=== PATIENT | female | born 1950 | race Asian ===

== ENCOUNTER 2019-07-30 15:47 | Emergency (ER) | payer SELFPAY ==
[2019-07-30] VITALS (7 sets, daily range): BP systolic 152–209; BP diastolic 67–84; PULSE 81–104; RESP 14–20; TEMP 37.1; O2SAT 97–100; BMI 21.9
--- NOTE | 2019-07-30 16:07 | DI.RAD.S_ITS ---
PROCEDURE: XR CHEST 1V INDICATIONS: syncope TECHNIQUE: One view of the chest was acquired. COMPARISON: None. FINDINGS: Surgical changes and devices: None. Lungs and pleura: Lungs are clear. No pleural effusions or pneumothorax. Mediastinum: Mediastinal contours appear normal. Heart size is normal. Bones and chest wall: No suspicious bony lesions. Overlying soft tissues appear unremarkable. IMPRESSION: Normal for age, source of current or syncopal symptoms is not seen. Dictated by: Jeff Casiano M.D. on 07/30/2019 at 16:34 Approved by: Jeff Casiano M.D. on 07/30/2019 at 16:34
--- NOTE | 2019-07-30 16:10 | ED_ITS ---
HPI - Dizziness <CLIVE Connelly - Last Filed: 07/30/19 21:35> General Chief Complaint: Dizziness Stated Complaint: PASSED OUT Time Seen by Provider: 07/30/19 15:58 Mode of arrival: Ambulatory Limitations: no limitations History of Present Illness HPI Narrative: 68yo female with a history of DM presents to the emergency department complaining of an episode of dizziness that started today around 2:00 p.m.. She states ?I felt dizzy and then immediately called my daughter, I laid back on the bed and felt like I would pass out but did not completely pass out. Patient states the episode lasted about 30 minutes. She is unable to differentiate between lightheadedness and feeling like the room is spinning. She denies any history of these episodes. She states she was being treated for diabetes in the [facility], has brought her medication from there. She does not have a primary care provider in the [facility]. She denies any recent travel in the last 14 days. Patient states her daughter took her blood sugar today after the episode and found to be 242 which her daughter reports is normal for her, she reports her mother does not have good control of her diabetes. Patient denies any other symptoms during the episode. She denies any symptoms at this time: No chest pain, shortness of breath, cough, difficulty breathing, rhinorrhea, sore throat, abdominal pain, vertigo, dizziness, nausea, vomiting, diarrhea, or any other concerns. She denies any history of cardiac issues. Related Data Previous Rx's Medication Instructions Recorded atorvastatin 10 mg PO DAILY #60 tab 07/30/19 meclizine 12.5 mg PO BID PRN #14 tab 07/30/19 Allergies Allergy/AdvReac Type Severity Reaction Status Date / Time No Known Drug Allergies Allergy Verified 07/30/19 15:57 Review of Systems <CLIVE Connelly - Last Filed: 07/30/19 21:35> Review of Systems Narrative: REVIEW OF SYSTEMS: GENERAL: Denies fever or chills. HENT: No head trauma, hearing loss or sore throat. EYES: No vision changes. CARDIOVASCULAR: No chest pain or syncope. RESPIRATORY: No shortness of breath or cough. GASTROINTESTINAL: No nausea, vomiting, diarrhea, or constipation. GENITOURINARY: No flank pain or dysuria. MUSCULOSKELETAL: No pain. INTEGUMENTARY: No rash, lesions, or pruritus. NEURO: Reports dizziness, see HPI. PSYCH: No behavior or mood changes. Patient History <CLIVE Connelly - Last Filed: 07/30/19 21:35> Medical History Diabetes (Acute) Social History Smoking Status: Never smoker Smoking Status: Never smoker Substance Use Type: does not use Exam <CLIVE Connelly - Last Filed: 07/30/19 21:35> Initial Vital Signs Initial Vital Signs: Vital Signs Temperature 98.8 F 07/30/19 15:55 Pulse Rate 92 H 07/30/19 15:55 Respiratory Rate 16 07/30/19 15:55 Blood Pressure 209/84 H 07/30/19 15:55 Pulse Oximetry 99 07/30/19 15:55 PHYSICAL EXAMINATION: GENERAL: Well groomed, alert, and cooperative. Answers questions promptly and appropriately. Vital signs noted. HENT: Normocephalic, atraumatic. Ear canals patent. Oral mucosa is pink and moist. EYES: Conjunctiva pink, sclera white, no periorbital swelling. CHEST: Normal to inspection and without deformities. CARDIOVASCULAR: S1 and S2 sounds normal. Regular rate and rhythm, no murmurs, clicks, or bruits. No pedal edema. RESPIRATORY: Normal respiratory rate, trachea midline, airway patent. No stridor, nasal flaring or accessory muscle use. Lungs are clear in all [place] without wheeze, rhonchi, or crackles. GASTROINTESTINAL: Bowel sounds normoactive. Abdomen is soft and non-tender. No organomegaly. MUSCULOSKELETAL: Normal gait and coordination. Equal tone and mass bilaterally. EXTREMITIES: CMS intact. Moves all extremities. SKIN: Warm, dry, soft, appropriate color for ethnicity. No lesions, rashes, or wounds. NEURO: Alert and Oriented X 3. Good coordination. No ataxia, or sensory deficit s, or cognitive issues. PSYCH: Appropriate affect and mood. <Cole Streeter MD - Last Filed: 07/31/19 07:48> Initial Vital Signs Initial Vital Signs: Vital Signs Temperature 98.8 F 07/30/19 15:55 Pulse Rate 92 H 04/24/20 15:55 Respiratory Rate 16 07/30/19 15:55 Blood Pressure 209/84 H 07/30/19 15:55 Pulse Oximetry 99 07/30/19 15:55 Scores <Luda Zhou SLEEVER - Last Filed: 07/30/19 21:35> HEART Score Heart Score history: Slightly Suspicious Heart Score EKG: Normal Heart Score Age: > or = 65 years old Heart Score risk factors: 1-2 risk factors Heart Score troponin: < or = to normal limit Heart Score Total: 3 Course <Luda Zhou SLEEVER - Last Filed: 07/30/19 21:35> Course Course Narrative: Patient denies any dizziness during her entire stay in the emergency department. She was able to ambulate without dizziness and change position without episodes of dizziness. Patient denies any symptoms during orth ostatic measurements. There was a slight increase in heart rate noted with the standing position, patient denies dizziness at this time. Orders Ordered: Discontinued Medications Sodium Chloride (Normal Saline 0.9%) 1,000 mls @ 1,000 mls/hr IV BOLUS ONE Stop: 07/30/19 16:59 Last Infusion: 07/30/19 17:10 Dose: 0 mls/hr Documented by: Admin: 07/30/19 16:31 Dose: 1,000 mls/hr Documented by: CARLOS Consultations Consultation #1: Patient staffed with Dr. Holloway discussed laboratory results, plan of care, and discharge instructions. Vital Signs Vital signs: Vital Signs - 8 hr 07/30/19 15:55 07/30/19 16:15 07/30/19 17:00 Temperature 98.8 F Pulse Rate 92 H 94 H 99 H Pulse Rate [Orthostatic Lying] Pulse Rate [Orthostatic Sitting] Pulse Rate [Orthostatic Standing] Respiratory Rate 16 18 14 Blood Pressure 209/84 H Blood Pressure [Left Arm] 174/77 H 184/76 H Blood Pressure [Orthostatic Lying] Blood Pressure [Orthostatic Sitting] Blood Pressure [Orthostatic Standing] Pulse Oximetry 99 100 99 07/30/19 18:18 07/30/19 18:23 07/30/19 19:54 Temperature Pulse Rate 88 81 Pulse Rate [Orthostatic Lying] 92 H Pulse Rate [Orthostatic Sitting] 92 H Pulse Rate [Orthostatic Standing] 104 H Respiratory Rate 16 20 Blood Pressure 156/70 H Blood Pressure [Left Arm] 152/67 H Blood Pressure [Orthostatic Lying] 166/77 H Blood Pressure [Orthostatic Sitting] 180/82 H Blood Pressure [Orthostatic Standing] 152/67 H Pulse Oximetry 98 97 07/30/19 19:56 Temperature Pulse Rate 81 Pulse Rate [Orthostatic Lying] Pulse Rate [Orthostatic Sitting] Pulse Rate [Orthostatic Standing] Respiratory Rate 20 Blood Pressure 156/70 H Blood Pressure [Left Arm] Blood Pressure [Orthostatic Lying] Blood Pressure [Orthostatic Sitting] Blood Pressure [Orthostatic Standing] Pulse Oximetry 97 <Cole Streeter MD - Last Filed: 07/31/19 07:48> Orders Ordered: Discontinued Medications Sodium Chloride (Normal Saline 0.9%) 1,000 mls @ 1,000 mls/hr IV BOLUS ONE Stop: 07/30/19 16:59 Last Infusion: 07/30/19 17:10 Dose: 0 mls/hr Documented by: Admin: 07/30/19 16:31 Dose: 1,000 mls/hr Documented by: CARLOS Vital Signs Vital signs: Vital Signs - 8 hr 07/30/19 15:55 07/30/19 16:15 07/30/19 17:00 Temperature 98.8 F Pulse Rate 92 H 94 H 99 H Pulse Rate [Orthostatic Lying] Pulse Rate [Orthostatic Sitting] Pulse Rate [Orthostatic Standing] Respiratory Rate 16 18 14 Blood Pressure 209/84 H Blood Pressure [Left Arm] 174/77 H 184/76 H Blood Pressure [Orthostatic Lying] Blood Pressure [Orthostatic Sitting] Blood Pressure [Orthostatic Standing] Pulse Oximetry 99 100 99 07/30/19 18:18 07/30/19 18:23 07/30/19 19:54 Temperature Pulse Rate 88 81 Pulse Rate [Orthostatic Lying] 92 H Pulse Rate [Orthostatic Sitting] 92 H Pulse Rate [Orthostatic Standing] 104 H Respiratory Rate 16 20 Blood Pressure 156/70 H Blood Pressure [Left Arm] 152/67 H Blood Pressure [Orthostatic Lying] 166/77 H Blood Pressure [Orthostatic Sitting] 180/82 H Blood Pressure [Orthostatic Standing] 152/67 H Pulse Oximetry 98 97 07/30/19 19:56 Temperature Pulse Rate 81 Pulse Rate [Orthostatic Lying] Pulse Rate [Orthostatic Sitting] Pulse Rate [Orthostatic Standing] Respiratory Rate 20 Blood Pressure 156/70 H Blood Pressure [Left Arm] Blood Pressure [Orthostatic Lying] Blood Pressure [Orthostatic Sitting] Blood Pressure [Orthostatic Standing] Pulse Oximetry 97 MDM - Dizziness <Luda ZhouCLIVE - Last Filed: 07/30/19 21:35> Medical Records Attestation: I reviewed the patient's medical records. Lab Data Attestation: I reviewed the patient's lab results. Result diagrams: 07/30/19 16:10 07/30/19 16:10 Labs: Lab Results 07/30/19 07/30/19 Range/Units 16:10 16:10 WBC 7.5 (4.5-11.0) X10^3/uL RBC 5.50 H (4.0-5.2) X10^6/uL Hgb 15.9 (12.0-16.0) g/dL Hct 46.7 H (36-46) % MCV 85.0 (80-100) fL MCH 29.0 (26-34) PG MCHC 34.1 (30-36) % RDW 13.7 (11.6-14.8) % Plt Count 234 (150-400) X10^3/uL Neut % (Auto) 78.6 H (50-75) % Lymph % (Auto) 13.5 L (25-40) % [place] % (Auto) 5.1 (3-14) % Eos % (Auto) 2.2 (2-4) % Baso % (Auto) 0.6 (0-2) % Neut # (Auto) 5900 (2372-7276) /uL Lymph # (Auto) 1000 L (8417-8588) /uL [place] # (Auto) 400 (0-900) /uL Eos # (Auto) 200 (0-450) /uL Baso # (Auto) 0 (0-100) /uL Sodium 137 (137-145) mmol/L Potassium 4.3 (3.4-5.1) mmol/L Chloride 101 (98-107) mmol/L Carbon Dioxide 26 (22-32) mmol/L BUN 19 H (7-17) mg/dL Creatinine 0.75 (0.52-1.04) mg/dL Estimated GFR > 60.0 (>60) mL/min BUN/Creatinine Ratio 25.3 H (6-22) Glucose 303 H (80-110) mg/dL Calcium 9.8 (8.4-10.2) mg/dL Total Bilirubin 0.5 (0.2-1.3) mg/dL AST 25 (14-36) IU/L ALT 20 (<35) IU/L Alkaline Phosphatase 74 (38-126) U/L Troponin I < 0.012 (0.01-0.034) ng/mL Total Protein 8.7 H (6.3-8.2) g/dL Albumin 4.7 (3.5-5.0) g/dL Globulin 4.0 (1.7-4.1) g/dL Albumin/Globulin Ratio 1.2 (1.0-2.8) Point of Care Testing Glucose POC 177 Urine Dip Bedside Urine Glucose 1000 mg/dl Bedside Urine Bilirubin - Negative Bedside Urine Ketone + 15 Urine Specific [place] 1.015 Bedside Urine Occult Blood - Negative Bedside Urine pH 6.5 Bedside Urine Protein - Negative Bedside Urine Urobilinogen - Negative Bedside Urine Nitrite - Negative Bedside Urine Leukocytes - Negative Esterase Imaging Data Chest x-ray: Radiologist's Impression: [address] [address] XRay Report Signed Patient: Armida Gagnon PMR#: [id number] : 1950Acct:[id number] Age/Sex: 68 / FDate of Service: 07/30/19 Loc: ED Accession Number: [id number] Procedure: XR chest 1V Ordering Provider: Luda Zhou PROCEDURE: XR CHEST 1V INDICATIONS: syncope TECHNIQUE: One view of the chest was acquired. COMPARISON: None. FINDINGS: Surgical changes and devices: None. Lungs and pleura: Lungs are clear. No pleural effusions or pneumothorax. Mediastinum: Mediastinal contours appear normal. Heart size is normal. Bones and chest wall: No suspicious bony lesions. Overlying soft tissues appear unremarkable. IMPRESSION: Normal for age, source of current or syncopal symptoms is not seen. Dictated by: Jeff Casiano M.D. on 07/30/2019 at 16:34 Approved by: Jeff Casiano M.D. on 07/30/2019 at 16:34 ECG Data Interpretation: 15:57: Normal sinus rhythm, rate 95, IL interval 144, QTC 439. No ST elevation or ST depression. No T-wave abnormality, no ectopy EKG also viewed by Dr. Streeter per protocol. [facility] Narrative Medical decision making narrative: 68-year-old female with a history of diabetes and high cholesterol, presents emergency department for a brief episode of dizziness. Patient was hemodynamically stable in the emergency department without any symptoms throughout her stay. EKG was non-remarkable, chest x-ray non-remarkable, and labs were within normal limits other than elevated glucose of 303 which decreased to 170s after administration of fluid. Patient tolerated orthostatic vital signs without symptoms, she did show slight increase in heart rate from sitting to standing. Differential for dizziness includes dehydration versus vertigo. Less likely cardiac etiology due to normal EKG, lack of syncope, resolution of symptoms without return over 30 minutes, lack of other suspicious symptoms such as chest pain, and [place] syncope risk score of 0. Less likely DKA, No anion gap, glucose levels less than 600. Less likely infection due to normal white blood cell count, afebrile, non tachycardic. Patient was given meclizine to help with symptoms if they return. Her head cholesterol medication was refilled. I did discuss with patient her high blood pressure, she was asymptomatic without headaches or chest pain. She was encouraged to establish and follow up with her primary care provider to discuss BP management. She was encouraged to record her blood pressures daily and bring this record to her appointment. Patient was given very strict ED return precautions for new or worsening symptoms. Patient agrees to plan of care verbalized understanding. <Cole Streeter MD - Last Filed: 07/31/19 07:48> Lab Data Labs: Lab Results 07/30/19 07/30/19 Range/Units 16:10 16:10 WBC 7.5 (4.5-11.0) X10^3/uL RBC 5.50 H (4.0-5.2) X10^6/uL Hgb 15.9 (12.0-16.0) g/dL Hct 46.7 H (36-46) % MCV 85.0 (80-100) fL MCH 29.0 (26-34) PG MCHC 34.1 (30-36) % RDW 13.7 (11.6-14.8) % Plt Count 234 (150-400) X10^3/uL Neut % (Auto) 78.6 H (50-75) % Lymph % (Auto) 13.5 L (25-40) % [place] % (Auto) 5.1 (3-14) % Eos % (Auto) 2.2 (2-4) % Baso % (Auto) 0.6 (0-2) % Neut # (Auto) 5900 (9358-9079) /uL Lymph # (Auto) 1000 L (1920-8000) /uL [place] # (Auto) 400 (0-900) /uL Eos # (Auto) 200 (0-450) /uL Baso # (Auto) 0 (0-100) /uL Sodium 137 (137-145) mmol/L Potassium 4.3 (3.4-5.1) mmol/L Chloride 101 (98-107) mmol/L Carbon Dioxide 26 (22-32) mmol/L BUN 19 H (7-17) mg/dL Creatinine 0.75 (0.52-1.04) mg/dL Estimated GFR > 60.0 (>60) mL/min BUN/Creatinine Ratio 25.3 H (6-22) Glucose 303 H (80-110) mg/dL Calcium 9.8 (8.4-10.2) mg/dL Total Bilirubin 0.5 (0.2-1.3) mg/dL AST 25 (14-36) IU/L ALT 20 (<35) IU/L Alkaline Phosphatase 74 (38-126) U/L Troponin I < 0.012 (0.01-0.034) ng/mL Total Protein 8.7 H (6.3-8.2) g/dL Albumin 4.7 (3.5-5.0) g/dL Globulin 4.0 (1.7-4.1) g/dL Albumin/Globulin Ratio 1.2 (1.0-2.8) Point of Care Testing Glucose POC 177 Urine Dip Bedside Urine Glucose 1000 mg/dl Bedside Urine Bilirubin - Negative Bedside Urine Ketone + 15 Urine Specific [place] 1.015 Bedside Urine Occult Blood - Negative Bedside Urine pH 6.5 Bedside Urine Protein - Negative Bedside Urine Urobilinogen - Negative Bedside Urine Nitrite - Negative Bedside Urine Leukocytes - Negative Esterase Discharge Plan Departure Patient Disposition: Home Clinical Impression: Dizziness Discharge Date/Time: 07/30/19 19:59 Instructions: DI for Vertigo, DI for Dizziness-Nonvertigo Activity Restrictions/Additional Instructions: Thank you for entrusting me with your care today. As discussed, your chest x-r ay, EKG, and labs were non-remarkable. Your initial blood sugar was high measuring 303 but after that after fluids, glucose measured 177. I am unsure the exact cause of your dizziness. It may be due to something called vertigo, this has to do with irritation of the inner ear which controls your balance. Prescribed you a medication called meclizine, take this if he developed dizziness. You can also buy this [id number] if your insurance does not pay for this. I have also refilled your cholesterol medication per request. Return emergency department for any new or worsening symptoms such as chest pain, continue dizziness, syncope, fevers, shortness of breath, or any other concerns. Please establish a primary care provider for follow-up in the next week. Prescriptions: New meclizine 12.5 mg tablet 12.5 mg PO BID PRN (Reason: dizziness) Qty: 14 RF: 0 atorvastatin 10 mg tablet 10 mg PO DAILY Qty: 60 RF: 0
[2019-07-30 16:17] LABS: Add Manual Diff / Slide Review NO; Basophils Absolute Auto 0 /uL (0-100); Basophils Percent Auto 0.6 % (0-2); Eosinophils Absolute Auto 200 /uL (0-450); Eosinophils Percent Auto 2.2 % (2-4); Hematocrit 46.7 % (36-46); Hemoglobin 15.9 g/dL (12.0-16.0); Lymphocytes Absolute Auto 1000 /uL (1100-4500); Lymphocytes Percent Auto 13.5 % (25-40); Mean Corpuscular HGB Conc 34.1 % (30-36); Monocytes Absolute Auto 400 /uL (0-900); Monocytes Percent Auto 5.1 % (3-14); Neutrophils Absolute Auto 5900 /uL (1500-7000); Neutrophils Percent Auto 78.6 % (50-75); Platelet Count 234 X10^3/uL (150-400); Red Cell Distribution Width 13.7 % (11.6-14.8); White Blood Cell Count 7.5 X10^3/uL (4.5-11.0)
[2019-07-30 16:28] LABS: Alanine Aminotransferase 20 IU/L (<35); Albumin 4.7 g/dL (3.5-5.0); Albumin Globulin Ratio 1.2 (1.0-2.8); Alkaline Phosphatase 74 U/L (38-126); Aspartate Aminotransferase 25 IU/L (14-36); BUN Creatinine Ratio 25.3 (6-22); Bilirubin Total 0.5 mg/dL (0.2-1.3); Blood Urea Nitrogen 19 mg/dL (7-17); Calcium 9.8 mg/dL (8.4-10.2); Carbon Dioxide 26 mmol/L (22-32); Chloride 101 mmol/L (98-107); Estimated Glomerular Filt Rate > 60.0 mL/min (>60); Glucose 303 mg/dL (80-110); HEMOLYSIS < 15 (0-50); Potassium 4.3 mmol/L (3.4-5.1); Sodium 137 mmol/L (137-145); Total Protein 8.7 g/dL (6.3-8.2)
[2019-07-30] MEDS: SODIUM CHLORIDE 0.9% 1,000 ML 1000 ML IV (16:31)
[2019-07-30 16:39] LABS: Troponin I < 0.012 ng/mL (0.01-0.034)
== END 2019-07-30 19:59 | disposition home or self-care (01) ==
PROVIDERS: Emergency Provider Nurse Practitioner
DX: R42 Dizziness and giddiness (principal); R55 Syncope and collapse
CPT/HCPCS: 36415; 71045; 80053; 81003; 82962; 84484; 85025; 93005; 93010; 96360; 99284